=== PATIENT | female | born 1955 | race Caucasian/White ===

== ENCOUNTER 2019-09-20 10:29 | Inpatient (IN) | payer BC ==
[~2019-09-20] VITALS: Ht 165.1 cm; Wt 65.9 kg
[2019-09-20] MEDS ORDERED: normal saline 1000ml 1,000 ML IV ONE (10:35)
[2019-09-20 11:04] LABS: BASOPHILS # (AUTO) 0.1 X10'3 (0-0.2); BASOPHILS % (AUTO) 0.4 % (0-1); EOSINOPHILS # (AUTO) 0.1 X10'3 (0-0.9); EOSINOPHILS % (AUTO) 0.6 % (0-6); HEMATOCRIT 29.2 % (35.0-45.0); HEMOGLOBIN 9.3 g/dl (12.0-16.0); LYMPHOCYTES # (AUTO) 2.4 X10'3 (1.1-4.8); LYMPHOCYTES % (AUTO) 18.5 % (21-51); MEAN CORPUSCULAR HEMOGLOBIN 22.4 PG (27.0-31.0); MEAN CORPUSCULAR HGB CONC 31.8 g/dL (33.0-36.5); MEAN CORPUSCULAR VOLUME 70.3 FL (78-98); MEAN PLATELET VOLUME 6.9 FL (7.4-10.4); MONOCYTES % (AUTO) 7.7 % (2-12); NEUTROPHILS # (AUTO) 9.6 X10'3 (1.8-7.7); NEUTROPHILS % (AUTO) 72.8 % (42-75); PLATELET COUNT 721 X10'3 (140-440); RED BLOOD COUNT 4.15 X10'6 (4.20-5.60); RED CELL DISTRIBUTION WIDTH 18.9 % (11.5-14.5); WHITE BLOOD COUNT 13.1 X10'3 (4.5-11.0)
[2019-09-20 11:17] LABS: PARTIAL THROMBOPLASTIN TIME 28 SECONDS (22-32)
[2019-09-20 11:19] LABS: PLATELET ESTIMATE INCREASED
[2019-09-20 11:20] LABS: ALANINE AMINOTRANSFERASE 44 U/L (12-78); ALBUMIN 3.3 G/DL (3.4-5.0); ALBUMIN/GLOBULIN RATIO 0.6 (1.1-1.5); ALKALINE PHOSPHATASE 150 IU/L (46-116); ANION GAP 21 (8-16); ANISOCYTOSIS 2+; ASPARTATE AMINO TRANSFERASE 31 U/L (10-37); BILIRUBIN,TOTAL 0.3 MG/DL (0.1-1.0); BLOOD UREA NITROGEN 42 MG/DL (7-18); BUN/CREATININE RATIO 9.5 (6.6-38.0); CALCIUM 9.2 MG/DL (8.5-10.1); CHLORIDE 95 MMOL/L (99-107); CREATININE 4.43 MG/DL (0.40-0.90); GLUCOSE 112 MG/DL (70-104); MICROCYTOSIS 1+; SODIUM 135 MMOL/L (135-145); TOTAL CARBON DIOXIDE 19.4 MMOL/L (24-32); eGFR 10 ML/MIN
[2019-09-20] MEDS ORDERED: normal saline 1000ML IV soln IVB ONE ×3 (11:30→15:10)
[2019-09-20] MEDS ORDERED: levoFLOXACIN-Levaquin 750MG/D5 150 ML IV ONE (11:30)
[2019-09-20] MEDS ORDERED: metroNIDAZOLE-Flagyl 500mg/NS 100 ML IV ONE (11:30)
[2019-09-20 12:44] LABS: CLARITY,URINE CLOUDY (Clear); GLUCOSE, URINE NEGATIVE (Neg); KETONES,URINE TRACE mg/dl (Neg); LEUKOCYTE ESTERASE ,URINE NEGATIVE (Neg); NITRITES, URINE NEGATIVE (Neg); OCCULT BLOOD,URINE TRACE-INTACT (Neg); PROTEIN,URINE 100 mg/dl (Neg); UROBILINOGEN,URINE 0.2 E.U/dL (0.2-1.0)
[2019-09-20 12:51] LABS: COLOR,URINE DARK YELLOW (Yellow); UA COLLECTION TYPE STRAIGHT CATH
[2019-09-20 12:54] LABS: BACTERIA,URINE NONE SEEN /HPF (Neg); MUCUS STRANDS FEW /LPF (Neg); RBC,URINE 0-2 /HPF (0-2)
[2019-09-20 12:55] LABS: AMORPHOUS URATES 1+
[2019-09-20 12:56] LABS: FINE GRANULAR CAST 0-3 /LPF (NEGATIVE); SQUAMOUS EPITHELIAL CELL,UR FEW /LPF (FEW)
[2019-09-20] MEDS ORDERED: SERT100T10 PO (13:30)
[2019-09-20] MEDS ORDERED: HYDR-3972 PO (13:30)
[2019-09-20] MEDS ORDERED: OMEP40CA13 PO (13:30)
--- NOTE | 2019-09-20 13:37 | NUR ---
bp 80/54 placed in [place] and dr. [place] order another liter of ns
--- NOTE | 2019-09-20 13:48 | NUR ---
abd soft, no bs. ileostomy draining liquid brown stool, patent.
[2019-09-20] MEDS ORDERED: SIMV-42 PO (13:57)
[2019-09-20] MEDS ORDERED: normal saline 1000ml 1,000 ML IVB ONE (14:12)
[2019-09-20] MEDS ORDERED: bisacodyl 10mg suppository rectal RC PRN (14:30)
[2019-09-20] MEDS ORDERED: potassium Cl 20 mEq SR tablet PO PRN (14:30)
[2019-09-20] MEDS ORDERED: magnesium 4gm in 100ml NS 100 ML IV PRN (14:30)
[2019-09-20] MEDS ORDERED: ondansetron/PF 4mg/2ml inj IV PRN (14:30)
[2019-09-20] MEDS ORDERED: magnesium Cl slow-release 64mg tablet PO PRN (14:30)
[2019-09-20] MEDS ORDERED: magnesium hydroxide 30ml (MOM) UD suspension PO PRN (14:30)
[2019-09-20] MEDS ORDERED: metoclopramide 5 mg/ml inj IV PRN (14:30)
[2019-09-20] MEDS ORDERED: mag hydrox/Alum hydrox/simeth 30ml oral suspension PO PRN (14:30)
[2019-09-20] MEDS ORDERED: magnesium 2GM in 50ml NS 50 ML IV PRN (14:30)
[2019-09-20] MEDS ORDERED: acetaminophen 325mg tablet PO PRN ×2 (14:30)
[2019-09-20] MEDS ORDERED: potassium CL 10mEq/100ml bag 100 ML IV PRN ×2 (14:30)
[2019-09-20] MEDS ORDERED: fentaNYL/PF 50MCG/1 ML 2ML syringe IV ONE (14:40)
[2019-09-20] MEDS ORDERED: HYDROcodone/acetaminophen 10/325mg tab PO PRN (14:45)
--- NOTE | 2019-09-20 15:51 | NUR ---
UP TO BATHROOM VOIDED LARGE AMT OF URINE PER PT. DRAINED ILEOSTOMY 200CC BROWN LIQUID STOOL
--- NOTE | 2019-09-20 15:59 | NUR ---
US OF KIDNEYS COMPLETED.
[2019-09-20] MEDS ORDERED: metroNIDAZOLE-Flagyl 500mg/NS 100 ML IV SCH (16:00)
--- NOTE | 2019-09-20 16:45 | NUR ---
Received report from ER nurse Luz Maria DINERO. Awaiting arrival to room 346A.
[2019-09-20] MEDS: normal saline 1000ml 1,000 ML IV SCH ×2 (17:11→23:32)
[2019-09-20 17:22] VITALS: BP 87/57
--- NOTE | 2019-09-20 18:38 | NUR ---
Problems reprioritized. Patient report given, questions answered & plan of care reviewed with Dk DINERO.
--- NOTE | 2019-09-20 18:39 | NUR ---
Patient in room [facility] 346. I have received report from MICHELE DINERO and had the opportunity to ask questions and assume patient care.
[2019-09-20 20:00] VITALS: BP 90/50
[2019-09-20] MEDS: docusate sod 100mg capsule PO SCH (20:00)
[2019-09-20] MEDS: K and/or MAG REPLACEMENT MC SCH (20:00)
[2019-09-20] MEDS: heparin, porcine 5000 units/ml vial SQ SCH (20:00)
[2019-09-20] MEDS: HYDROcodone/acetaminophen 10/325mg tab PO PRN (20:06)
[2019-09-20] MEDS: temazepam 15mg capsule PO PRN (20:45)
[2019-09-21] VITALS (11 sets, daily range): BP systolic 82–101; BP diastolic 35–53
[2019-09-21] MEDS: HYDROcodone/acetaminophen 10/325mg tab PO PRN ×4 (00:19→20:02)
[2019-09-21] MEDS: metroNIDAZOLE-Flagyl 500mg/NS 100 ML IV SCH ×4 (00:21→23:51)
[2019-09-21] MEDS: normal saline 1000ml 1,000 ML IV SCH (04:38)
[2019-09-21 05:12] LABS: BASOPHILS % (AUTO) 0.6 % (0-1); EOSINOPHILS # (AUTO) 0.1 X10'3 (0-0.9); EOSINOPHILS % (AUTO) 1.6 % (0-6); LYMPHOCYTES # (AUTO) 1.8 X10'3 (1.1-4.8); LYMPHOCYTES % (AUTO) 28.5 % (21-51); MEAN CORPUSCULAR HEMOGLOBIN 22.4 PG (27.0-31.0); MEAN CORPUSCULAR HGB CONC 31.6 g/dL (33.0-36.5); MEAN CORPUSCULAR VOLUME 70.8 FL (78-98); MEAN PLATELET VOLUME 6.8 FL (7.4-10.4); MONOCYTES # (AUTO) 0.6 X10'3 (0-0.9); MONOCYTES % (AUTO) 9.2 % (2-12); NEUTROPHILS # (AUTO) 3.8 X10'3 (1.8-7.7); NEUTROPHILS % (AUTO) 60.1 % (42-75); PLATELET COUNT 504 X10'3 (140-440); RED BLOOD COUNT 3.01 X10'6 (4.20-5.60); WHITE BLOOD COUNT 6.3 X10'3 (4.5-11.0)
[2019-09-21 05:29] LABS: ALANINE AMINOTRANSFERASE 30 U/L (12-78); ALBUMIN 2.2 G/DL (3.4-5.0); ALBUMIN/GLOBULIN RATIO 0.6 (1.1-1.5); ALKALINE PHOSPHATASE 98 IU/L (46-116); ANION GAP 10 (8-16); ASPARTATE AMINO TRANSFERASE 22 U/L (10-37); BILIRUBIN,TOTAL 0.1 MG/DL (0.1-1.0); BLOOD UREA NITROGEN 20 MG/DL (7-18); BUN/CREATININE RATIO 20.4 (6.6-38.0); CALCIUM 8.1 MG/DL (8.5-10.1); CHLORIDE 109 MMOL/L (99-107); CREATININE 0.98 MG/DL (0.40-0.90); GLUCOSE 88 MG/DL (70-104); MAGNESIUM 1.5 MG/DL (1.5-2.4); PHOSPHORUS 3.2 MG/DL (2.3-4.5); POTASSIUM 3.4 MMOL/L (3.5-5.1); SODIUM 141 MMOL/L (135-145); TOTAL CARBON DIOXIDE 21.6 MMOL/L (24-32); TOTAL PROTEIN 6.2 G/DL (6.4-8.2); eGFR 57 ML/MIN
[2019-09-21 05:45] LABS: HEMATOCRIT 21.3 % (35.0-45.0); HEMOGLOBIN 6.7 g/dl (12.0-16.0)
--- NOTE | 2019-09-21 06:02 | NUR ---
CALLED DR. BAPTISTE AND WAS INFORMED OF CRITICAL HGB 6.7 AND HCT 21.3 WITH ORDER TO REPEAT CBC NOW.
--- NOTE | 2019-09-21 06:05 | NUR ---
Patient in room [facility] 346. I have received report from BAR Root and had the opportunity to ask questions and assume patient care.
[2019-09-21 06:37] LABS: BASOPHILS % (AUTO) 0.4 % (0-1); EOSINOPHILS # (AUTO) 0.1 X10'3 (0-0.9); EOSINOPHILS % (AUTO) 2.2 % (0-6); LYMPHOCYTES # (AUTO) 1.8 X10'3 (1.1-4.8); LYMPHOCYTES % (AUTO) 29.2 % (21-51); MEAN CORPUSCULAR HEMOGLOBIN 22.8 PG (27.0-31.0); MEAN CORPUSCULAR HGB CONC 31.9 g/dL (33.0-36.5); MEAN CORPUSCULAR VOLUME 71.3 FL (78-98); MEAN PLATELET VOLUME 6.6 FL (7.4-10.4); MONOCYTES # (AUTO) 0.6 X10'3 (0-0.9); MONOCYTES % (AUTO) 9.4 % (2-12); NEUTROPHILS # (AUTO) 3.6 X10'3 (1.8-7.7); NEUTROPHILS % (AUTO) 58.8 % (42-75); PLATELET COUNT 486 X10'3 (140-440); RED BLOOD COUNT 3.09 X10'6 (4.20-5.60); RED CELL DISTRIBUTION WIDTH 18.5 % (11.5-14.5); WHITE BLOOD COUNT 6.2 X10'3 (4.5-11.0)
--- NOTE | 2019-09-21 07:19 | NUR ---
Paged Dr. Galvin regarding critical H&H, low BP "PAGER ID: [phone] MESSAGE: RM 346A Deya Orlando. CRITICAL H&H 7.0/22.0 (repeat from 0500 6.7/21.3), current BP 85/35. Pt does not report dizziness or lightheadedness. Please advise, thanks. Estrella Surg [id number]."
[2019-09-21] MEDS: heparin, porcine 5000 units/ml vial SQ SCH ×2 (07:43→20:00)
[2019-09-21] MEDS: sertraline 50mg tablet PO SCH (07:43)
[2019-09-21] MEDS: potassium Cl 20 mEq SR tablet PO PRN ×3 (07:43→20:08)
[2019-09-21] MEDS: docusate sod 100mg capsule PO SCH ×2 (07:44→20:00)
[2019-09-21] MEDS: K and/or MAG REPLACEMENT MC SCH ×2 (07:44→20:10)
[2019-09-21] MEDS: levoFLOXACIN-Levaquin 250mg/D5 50 ML IV SCH (07:45)
--- NOTE | 2019-09-21 07:57 | NUR ---
Paged Dr. Galvin regarding critical H&H, low BP "PAGER ID: [phone] MESSAGE: RM 346A Deya Orlando. CRITICAL H&H 7.0/22.0 (repeat from 0500 6.7/21.3), current BP 85/35. Pt does not report dizziness or lightheadedness. Please advise, thanks. Estrella Surg [id number]."
[2019-09-21] MEDS ORDERED: enoxaparin 40mg/0.4ml syringe SQ SCH (08:00)
[2019-09-21 08:42] LABS: ANISOCYTOSIS 2+; HYPOCHROMASIA 1+; MICROCYTOSIS 1+; PLATELET ESTIMATE INCREASED; POLYCHROMASIA 1+
--- NOTE | 2019-09-21 09:46 | NUR ---
PAGER ID: [phone] MESSAGE: 346A. Marcio Orlando Please sign blood transfusion informed consent form. Thanks, Estrella Surg [id number].
--- NOTE | 2019-09-21 11:04 | NUR ---
Paged Dr. Galvin regarding informed consent & patient status. PAGER ID: [phone] MESSAGE: "RM 346A. Deya Orlando. Patient starting to feel dizzy and lightheaded, flushed. BP 101/52, HR 60. Please sign blood transfusion informed consent. Thanks, Estrella Surg [id number]"
--- NOTE | 2019-09-21 13:47 | NUR ---
1253 Blood transfusion started. Vital signs documented per protocol. Patient had some mild facial flushing prior to start of transfusion. 1305 patient reports feeling more flushed, very drowsy, wakes to shaking. Oriented to person, place, but not time or reason. PERRL. Afebrile, no change in blood pressure or heart rate. Patient reports chills. No chest or back pain, no headache, no itching, no SOB. Stopped blood transfusion at this time. Dr. Galvin made aware of possible transfusion reaction at 1310. Orders completed per protocol.
[2019-09-21 13:50] LABS: CLARITY,URINE SLIGHTLY CLOUDY (Clear); COLOR,URINE STRAW (Yellow); GLUCOSE, URINE NEGATIVE (Neg); KETONES,URINE NEGATIVE (Neg); LEUKOCYTE ESTERASE ,URINE NEGATIVE (Neg); NITRITES, URINE NEGATIVE (Neg); OCCULT BLOOD,URINE TRACE-LYSED (Neg); PH,URINE 5.5 (4.8-8.0); PROTEIN,URINE NEGATIVE (Neg); UROBILINOGEN,URINE 0.2 E.U/dL (0.2-1.0)
[2019-09-21 13:51] LABS: UA COLLECTION TYPE VOIDED
[2019-09-21 14:01] LABS: SQUAMOUS EPITHELIAL CELL,UR MODERATE /LPF (FEW)
[2019-09-21 14:02] LABS: BACTERIA,URINE FEW /HPF (Neg)
[2019-09-21 14:03] LABS: WBC,URINE 0-4 /HPF (0-4)
[2019-09-21 14:04] LABS: RBC,URINE 0-2 /HPF (0-2)
[2019-09-21 14:08] LABS: AMORPHOUS URATES 1+
[2019-09-21] MEDS: HYDROcodone/acetaminophen 5mg/325mg tablet PO PRN (16:12)
--- NOTE | 2019-09-21 16:12 | NUR ---
OSTOMY FACTS: Almost everyone has know of, or met, businessmen, entertainers, athletes, and people from all walks of life who have an ostomy. Ostomates (a person that has an ostomy) can ski, ride horses, bowl, and get healthy exercise in countless ways. Your usual activities of daily living can be resumed as soon as you are able. Gradually you will be able to wear the clothes worn before surgery. With modern pouches, nothing is noticeable under your clothing. It may be difficult at first to believe that an intimate relationship can be possible when one's body has been disfigured by surgery. This is not true. Love, fortunately, is not easily destroyed when it is based on genuine appreciation of a person as a thinking, feeling, reacting human being. AN OSTOMY IS NOT AN IMPAIRMENT!! DEFINITIONS: 1.OSTOMY: An opening that is created by a surgical procedure. The opening is called a "stoma". 2.STOMA: A surgical opening in the abdomen (belly) where intestine is brought through the abdominal wall and connected at the skin level. A stoma is shiny, wet and at first is dark purple but eventually turns pink, similar to the inside lining of your mouth. 3.COLON: A portion of the large bowel. 4.COLOSTOMY: A fecal diversion with an opening, (stoma) created anywhere along the colon. Making a connection between the colon and the abdominal wall. 5.ILLEOSTOMY: A fecal diversion with an opening, (stoma) created in the small intestine. Making a connection between the small intestine and the abdominal wall. 6.UROSTOMY: A urinary diversion with the ureters connected to a segment of the small bowel and one end is brought out and connected to the abdominal wall, creating a stoma. SHAPES and SIZES: "The stoma is usually round or oval. "It is anywhere from a dime to half dollar in size. "A stoma reaches its permanent size 6-8 weeks after surgery. PRODUCTS: 1.POUCH or APPLIANCE: An external device to contain stool or urine output and protect the skin around the stoma. It can be a one piece pouch or two pieces (a pouch and a wafer). 2.BARRIER: Substance that is used to protect the skin around the stoma from drainage and adhesive. 3.SKIN PREP or SEALANT: Product applied to the skin to reduce injury from moisture, drainage, or repeated pouch removal. Available in spray or wipes. 4.CLOSURE or CLAMP: A device used to close the bottom of a drainable pouch. 5.BRIDGE or CLARICE: A piece of plastic placed under a loop of bowel on the skins surface, to secure the bowel in place while the skin heals. POUCH CHANGE PROCEEDURE: 1.Assemble all the supplies "1 or 2 piece appliance "Ostomy paste (if needed) "Ostomy powder (if needed) "Skin prep wipes ( not recommended with coloplast products) "Moist wash cloth or cotton balls 2.Remove plastic center and paper backing from pouch. If pouch or wafer is not precut, use the sizing guide, or plastic backing from pouch to make a pattern. Do this by placing the paper over the stoma and trace it, or draw a pattern. Cut the wafer to fit and set it aside. 3.Remove old pouch by lifting up on tape while pressing skin down away from the tape. If there is a clip on your pouch, remove it and save it. 4.Clean skin or stoma with moistened wash cloth or cotton balls. Place a clean cotton ball over stoma hole to catch any drainage. Let skin dry. 5.For grooves or uneven areas in the skin- apply ostomy paste and sprinkle with ostomy powder, then gently shape the past so the area around the stoma is smooth and as flat as possible. Wipe off or blow away excess. Blot powder with skin prep wipe (DO NOT wipe powder). Let dry until no longer sticky. 6.For irritated or reddened skin- sprinkle ostomy powder on red or irritated area. Wipe off or blow away excess. Blot powder with skin prep wipe (DO NOT wipe powder). Let dry until no longer sticky. 7.Apply skin prep wipe to skin to which the pouch and tape will adhere. Let dry until no longer sticky. 8.If you have a one piece appliance- apply pouch so it is centered around the stoma. No skin should be exposed to stool. All skin should be covered by paste or pouch. 9.If you have a two piece appliance- Apply the wafer as described above, then snap or stick pouch onto wafer. Check to make sure wafer and pouch are securely connected. 10.Place clip on bottom of pouch. 11.Empty pouch when 1/3 full. OSTOMY SKIN CARE: "Good health care and nutrition are essential for healthy skin. "Usually a correct pouch size will prevent skin breakdown. "Use warm water and soap for skin cleansing. "Do not use creams or oil based products on skin around the stoma. This will prevent the appliance from sticking. "Use skin prep around the stoma. IT CAN TAKE 24 HOURS TO SEVERAL DAYS FOR SKIN TO HEAL. IF IT IS NOT RESOLVING, OR GETTING WORSE, CALL YOUR PRIMARY CARE DOCTOR. Addendum: 09/21/19 at 1612 by Anisha Mock RN Amended: Links added.
--- NOTE | 2019-09-21 16:14 | NUR ---
Stoma is s/p recent surgery. Stoma is brick red with bridge underneath. Bridge and stomal sutures are still intact. Cleansed with wound cleanser, rinsed with NS and dried. Applied crust of stoma powder and barrier spray, then zari ring, then bag. Advised pt to cover with warm blanket to help adherence. STOMA CARE: *USE SUCTION TO AID BAG CHANGES BUT DO NOT PLACE IN STOMA* Cleanse with wound cleanser, rinse with NS and lightly pat dry *do not wipe*. Apply thin layer of stoma powder to collin-stomal skin, then spray with barrier spray until transparent. Allow to dry, then apply 2nd layer of stoma powder and spray with barrier spray again until transparent. Apply zari seal to help even out area around stoma and bridge before placing bag over entire appliance. Apply warm compress (heated blanket) to area after application to aid in adherence. Addendum: 09/21/19 at 1615 by Anisha Mock RN Amended: Links added.
--- NOTE | 2019-09-21 18:40 | NUR ---
Problems reprioritized. Patient report given, questions answered & plan of care reviewed with Kristel, RN
[2019-09-21] MEDS: lactobacillus rhamnosus 10,000 MMU CELLS/CAPSULE PO SCH (20:00)
[2019-09-21] MEDS: temazepam 15mg capsule PO PRN (23:51)
[2019-09-22] MEDS: HYDROcodone/acetaminophen 10/325mg tab PO PRN ×2 (00:32→04:49)
[2019-09-22] MEDS: normal saline 1000ml 1,000 ML IV SCH ×2 (04:02→11:40)
[2019-09-22 05:22] LABS: BASOPHILS % (AUTO) 0.5 % (0-1); EOSINOPHILS # (AUTO) 0.2 X10'3 (0-0.9); EOSINOPHILS % (AUTO) 2.7 % (0-6); HEMATOCRIT 23.1 % (35.0-45.0); HEMOGLOBIN 7.4 g/dl (12.0-16.0); LYMPHOCYTES # (AUTO) 2.4 X10'3 (1.1-4.8); LYMPHOCYTES % (AUTO) 35.3 % (21-51); MEAN CORPUSCULAR HEMOGLOBIN 22.6 PG (27.0-31.0); MEAN CORPUSCULAR HGB CONC 32.1 g/dL (33.0-36.5); MEAN CORPUSCULAR VOLUME 70.5 FL (78-98); MEAN PLATELET VOLUME 6.6 FL (7.4-10.4); MONOCYTES # (AUTO) 0.5 X10'3 (0-0.9); MONOCYTES % (AUTO) 7.7 % (2-12); NEUTROPHILS # (AUTO) 3.6 X10'3 (1.8-7.7); NEUTROPHILS % (AUTO) 53.8 % (42-75); PLATELET COUNT 503 X10'3 (140-440); RED BLOOD COUNT 3.28 X10'6 (4.20-5.60); RED CELL DISTRIBUTION WIDTH 18.4 % (11.5-14.5); WHITE BLOOD COUNT 6.8 X10'3 (4.5-11.0)
[2019-09-22 05:49] LABS: ALANINE AMINOTRANSFERASE 36 U/L (12-78); ALBUMIN 2.5 G/DL (3.4-5.0); ALBUMIN/GLOBULIN RATIO 0.6 (1.1-1.5); ALKALINE PHOSPHATASE 105 IU/L (46-116); ANION GAP 12 (8-16); ASPARTATE AMINO TRANSFERASE 28 U/L (10-37); BILIRUBIN,TOTAL 0.1 MG/DL (0.1-1.0); BLOOD UREA NITROGEN 17 MG/DL (7-18); BUN/CREATININE RATIO 22.1 (6.6-38.0); CALCIUM 9.1 MG/DL (8.5-10.1); CHLORIDE 106 MMOL/L (99-107); CREATININE 0.77 MG/DL (0.40-0.90); GLUCOSE 90 MG/DL (70-104); MAGNESIUM 1.6 MG/DL (1.5-2.4); PHOSPHORUS 3.2 MG/DL (2.3-4.5); POTASSIUM 3.9 MMOL/L (3.5-5.1); SODIUM 141 MMOL/L (135-145); TOTAL CARBON DIOXIDE 22.9 MMOL/L (24-32); eGFR 75 ML/MIN
[2019-09-22 07:26] VITALS: BP 101/49
[2019-09-22] MEDS: docusate sod 100mg capsule PO SCH (08:00)
[2019-09-22] MEDS: K and/or MAG REPLACEMENT MC SCH (08:00)
[2019-09-22] MEDS: levoFLOXACIN-Levaquin 250mg/D5 50 ML IV SCH (08:30)
[2019-09-22] MEDS: lactobacillus rhamnosus 10,000 MMU CELLS/CAPSULE PO SCH (08:32)
[2019-09-22] MEDS: heparin, porcine 5000 units/ml vial SQ SCH (08:33)
[2019-09-22] MEDS: sertraline 50mg tablet PO SCH (08:33)
[2019-09-22] MEDS: HYDROcodone/acetaminophen 5mg/325mg tablet PO PRN (08:35)
[2019-09-22 11:00] VITALS: BP 89/48
[2019-09-22] MEDS: metroNIDAZOLE-Flagyl 500mg/NS 100 ML IV SCH ×2 (11:41→16:00)
[2019-09-22 11:54] VITALS: BP 90/48
[2019-09-22] MEDS ORDERED: LEVO500T2 PO (14:46)
[2019-09-22] MEDS ORDERED: METR-159 PO (14:46)
--- NOTE | 2019-09-22 14:52 | NUR ---
MD Santiago made aware of lower blood pressures of this AM. No new orders at this time.
--- NOTE | 2019-09-22 14:52 | NUR ---
REVIEWED DISCHARGE PAPERWORK WITH PT. AND SPOUSE. PT. AWARE TO FOLLOW UP WITH PCP AND KATEY. WOUND CARE INSTRUCTIONS GIVEN TO PT. SHE IS CONFIDENT SHE CAN CARE FOR HER WOUND. IV DC'D, PRESSURE BANDAGE APPLIED, NO S/SX BLEEDING NOTED. TELE DC'D CLEANED AND RETURNED. PT. AWARE TO TRESTLE MECHANIC HER 2 ANTIBIOTIC PRESCRIPTIONS THAT THE COMPUTER STATES HAVE BEEN E-SCRIPTED TO HER PREFERRED PHARMACY. PT. ESCORTED IN A WC OUT TO HER PRIVATE VEHICLE. SHE TOOK ALL OF HER BELONGINGS.
== END 2019-09-22 16:26 | disposition home or self-care (01) | DRG 641 ==
LOC: ER 10:30 → ED HOLD 14:30 → SUR 3N 17:01
PROVIDERS: ADMIT Family Medicine; ATTEND Family Medicine
PROC: 30233N1 Transfusion of Nonautologous Red Blood Cells into Peripheral Vein, Percutaneous Approach (ICD-10-PCS; principal; 2019-09-21)
DX: E86.0 Dehydration (principal); N17.9 Acute kidney failure, unspecified; D64.9 Anemia, unspecified; E78.5 Hyperlipidemia, unspecified; F32.9 Major depressive disorder, single episode, unspecified; I10 Essential (primary) hypertension; K21.9 Gastro-esophageal reflux disease without esophagitis; M06.9 Rheumatoid arthritis, unspecified; Z80.1 Family history of malignant neoplasm of trachea, bronchus and lung; Z87.19 Personal history of other diseases of the digestive system; Z93.2 Ileostomy status; Z93.3 Colostomy status; Z88.0 Allergy status to penicillin; Z88.8 Allergy status to other drugs, medicaments and biological substances
CPT/HCPCS: 36415; 71045; 74176; 76775; 80053; 81001; 83605; 83735; 84100; 84145; 85025; 85610; 85730; 86078; 86885; 86900; 86901; 86920; 87040; 87081; 87088; 93005; 96365; 97161; 97530; 99285; G0378; J1644; J1956; J3010; J3490; J7030; P9016

== ENCOUNTER 2023-07-01 19:54 | Emergency (ER) | payer BC, MEDICARE ==
[~2023-07-01] VITALS: Ht 152.4 cm; Wt 75.5 kg
[~2023-07-01 19:54] MED LIST: HYDR-3972 PO; OMEP40CA21 PO; SERT-434 PO; SIMV-42 PO
--- NOTE | 2023-07-01 20:07 | NUR ---
ATTEMPTED TO PLACE C-COLLAR ON PT, PT REFUSES AND REMOVED BY SELF.
[2023-07-01] MEDS ORDERED: ondansetron 4mg rapidly disintigrating tab PO ONE (20:15)
[2023-07-01] MEDS ORDERED: morphine 4 MG/ML inj SYRINge IV ONE (20:15)
--- NOTE | 2023-07-01 20:29 | NUR ---
DAUGHTER ELISEO [place]GE- [phone]
--- NOTE | 2023-07-01 20:30 | NUR ---
PT BACK FROM CT
--- NOTE | 2023-07-01 21:34 | NUR ---
CALLED DAUGHTER ELISEO FOR D/C RIDE HOME. ETA 30MIN.
[2023-07-01 22:15] VITALS: BP 100/74; PULSE 75; RESP 18; TEMP 98.2; O2SAT 98
== END 2023-07-01 22:17 | disposition home or self-care (01) ==
LOC: ER 19:54
DX: S09.90XA Unspecified injury of head, initial encounter (principal); I10 Essential (primary) hypertension; K21.9 Gastro-esophageal reflux disease without esophagitis; M19.90 Unspecified osteoarthritis, unspecified site; F10.129 Alcohol abuse with intoxication, unspecified; Z88.8 Allergy status to other drugs, medicaments and biological substances; Z88.0 Allergy status to penicillin; Z79.899 Other long term (current) drug therapy; W19.XXXA Unspecified fall, initial encounter; Y93.89 Activity, other specified; Y92.89 Other specified places as the place of occurrence of the external cause; Y99.8 Other external cause status; Y90.9 Presence of alcohol in blood, level not specified
CPT/HCPCS: 70450; 96374; 99285; J2270

== ENCOUNTER 2023-07-30 23:41 | Emergency (ER) | payer MEDICARE ==
[~2023-07-30] VITALS: Ht 152.4 cm; Wt 78.6 kg
[2023-07-30 23:45] VITALS: BP 109/59; PULSE 62; RESP 20; TEMP 97.3; O2SAT 94
[2023-07-31] MEDS ORDERED: ondansetron/PF 4mg/2ml inj IV ONE (00:25)
[2023-07-31] MEDS ORDERED: morphine 4 MG/ML inj SYRINge IV ONE (00:25)
[2023-07-31] MEDS ORDERED: acetaminophen 325mg tablet PO ONE (00:25)
[2023-07-31 00:26] LABS: BILIRUBIN,URINE LARGE (Neg); CLARITY,URINE TURBID (Clear); COLOR,URINE RED (Yellow); GLUCOSE, URINE 100 mg/dl (Neg); KETONES,URINE 15 mg/dl (Neg); LEUKOCYTE ESTERASE ,URINE LARGE (Neg); NITRITES, URINE POSITIVE (Neg); OCCULT BLOOD,URINE LARGE (Neg); PH,URINE 6.5 (4.8-8.0); PROTEIN,URINE >=300 mg/dl (Neg); UROBILINOGEN,URINE >=8.0 E.U/dL (0.2-1.0)
[2023-07-31 00:59] LABS: UA COLLECTION TYPE CLN CATCH MIDSTREAM
[2023-07-31 01:00] LABS: RBC,URINE TNTC /HPF (0-2)
[2023-07-31 01:04] LABS: SQUAMOUS EPITHELIAL CELL,UR FEW /LPF (FEW)
[2023-07-31 01:07] LABS: WBC,URINE TNTC /HPF (0-4)
[2023-07-31 01:11] LABS: BACTERIA,URINE 2+ /HPF (Neg)
[2023-07-31 01:28] LABS: BASOPHILS # (AUTO) 0.1 X10'3 (0-0.2); BASOPHILS % (AUTO) 0.6 % (0-1); EOSINOPHILS # (AUTO) 0.1 X10'3 (0-0.9); EOSINOPHILS % (AUTO) 0.6 % (0-6); HEMOGLOBIN 15.7 g/dl (12.0-16.0); LYMPHOCYTES # (AUTO) 1.9 X10'3 (1.1-4.8); LYMPHOCYTES % (AUTO) 14.2 % (21-51); MEAN CORPUSCULAR HEMOGLOBIN 32.8 PG (27.0-31.0); MEAN CORPUSCULAR HGB CONC 34.8 g/dL (33.0-36.5); MEAN CORPUSCULAR VOLUME 94.2 FL (78-98); MEAN PLATELET VOLUME 7.5 FL (7.4-10.4); MONOCYTES # (AUTO) 0.8 X10'3 (0-0.9); MONOCYTES % (AUTO) 5.9 % (2-12); NEUTROPHILS # (AUTO) 10.8 X10'3 (1.8-7.7); NEUTROPHILS % (AUTO) 78.7 % (42-75); PLATELET COUNT 265 X10'3 (140-440); RED BLOOD COUNT 4.78 X10'6 (4.20-5.60); WHITE BLOOD COUNT 13.7 X10'3 (4.5-11.0)
[2023-07-31 01:42] LABS: ALANINE AMINOTRANSFERASE 20 U/L (12-78); ALBUMIN 3.9 G/DL (3.4-5.0); ALBUMIN/GLOBULIN RATIO 1.2 (1.1-1.5); ALKALINE PHOSPHATASE 53 IU/L (46-116); ANION GAP 10 (8-16); ASPARTATE AMINO TRANSFERASE 18 U/L (10-37); BILIRUBIN,TOTAL 0.4 MG/DL (0.1-1.0); BLOOD UREA NITROGEN 14 MG/DL (7-18); BUN/CREATININE RATIO 14.7 (10.0-20.0); CHLORIDE 100 MMOL/L (99-107); CREATININE 0.95 MG/DL (0.40-0.90); GLUCOSE 108 MG/DL (70-104); LIPASE 93 U/L (16-77); SODIUM 139 MMOL/L (135-145); TOTAL CARBON DIOXIDE 29.4 MMOL/L (24-32); TOTAL PROTEIN 7.2 G/DL (6.4-8.2); eCRCL 41 ML/MIN; eGFR 58 ML/MIN
[2023-07-31 01:49] LABS: POTASSIUM 2.9 MMOL/L (3.5-5.1)
[2023-07-31] MEDS ORDERED: CefTRIAXone/D5W-Rocephin 1gm 50 ML IV ONE (01:50)
[2023-07-31] MEDS ORDERED: potassium Cl 20 mEq SR tablet PO STA (01:50)
[2023-07-31] MEDS ORDERED: CEPH-585 PO (03:32)
[2023-07-31] MEDS ORDERED: cephalexin 250mg capsule PO ONE (03:40)
== END 2023-07-31 04:15 | disposition home or self-care (01) ==
LOC: ER 23:42
DX: N39.0 Urinary tract infection, site not specified (principal); E87.6 Hypokalemia; I10 Essential (primary) hypertension; K21.9 Gastro-esophageal reflux disease without esophagitis; Z88.8 Allergy status to other drugs, medicaments and biological substances; Z79.899 Other long term (current) drug therapy; Z88.0 Allergy status to penicillin
CPT/HCPCS: 36415; 74176; 80053; 81001; 83605; 83690; 85025; 87040; 87077; 87088; 87186; 99284

== ENCOUNTER 2025-07-29 08:39 | Outpatient (CLI) | payer MEDICARE ==
[2025-07-29 09:32] LABS: MEAN PLATELET VOLUME 7.1 FL (7.4-10.4); RED CELL DISTRIBUTION WIDTH 14.4 % (11.5-14.5)
[2025-07-29 10:40] LABS: CHOL/HDL RATIO 4.0 (0.00-4.99); CREATININE 0.73 MG/DL (0.40-0.90); LDL CHOLESTEROL 149 MG/DL (50-100); TOTAL CARBON DIOXIDE 30.4 MMOL/L (24-32); eGFR 79 ML/MIN
--- NOTE | 2025-07-29 10:53 | RADIOLOGY REPORT ---
EXAM: CT CT CHEST LOW DOSE HISTORY: NICOTINE DEPENDENCE, CIGARETTES COMPARISON: None TECHNIQUE: Noncontrast helical CT images of the chest were performed utilizing low dose lung cancer screening protocol. Sagittal and coronal reformatted images were obtained. This CT exam was performed using one or more of the following dose reduction techniques: Automated exposure control, adjustment of the mA and/or kV according to patient size, or use of iterative reconstruction technique. Radiation Dose: CT Dose: CTDI volume is 2.8 mGy. Dose-length product is 94.43 mGy*cm FINDINGS: No noncalcified pulmonary nodules, consolidative infiltrates, pneumothorax, pleural effusions, or pulmonary edema. There is linear and nodular scarring in the lung bases. No suspicious mediastinal or axillary adenopathy. The heart is not enlarged. There are coronary artery calcifications. There is a trace pericardial effusion. The central pulmonary arteries are ectatic. No thoracic aortic aneurysm. There is a chronic appearing mild superior endplate compression fracture of T11. There is thoracic degenerative disc disease with multiple thick bridging syndesmophytes present. IMPRESSION: 1. No noncalcified pulmonary nodules or other acute intrathoracic process. 2. Coronary artery disease. 3. Chronic appearing mild superior endplate compression fracture of T11. 4. Thoracic spondylosis with some degree of ankylosis. Lung-RADS 1. Negative. Continue annual screening with LDCT in 12 months. Lung- RADS v2022.
[2025-07-30 11:04] LABS: VITAMIN D, 25-HYDROXY 19.6 ng/mL (30.0-100.0)
[2025-07-30 15:42] LABS: CREATININE, URINE 109.9 mg/dL (Not Estab.); MICROALB/CRT, RATIO 76 mg/g creat (0-29); MICROALBUMIN,U,RANDOM 83.4 ug/mL (Not Estab.)
== END 2025-07-29 23:59 | disposition home or self-care (01) ==
LOC: RAD 08:39
PROVIDERS: ATTEND Internal Medicine
DX: S22.080A Wedge compression fracture of T11-T12 vertebra, initial encounter for closed fracture (principal); Z12.2 Encounter for screening for malignant neoplasm of respiratory organs; F17.210 Nicotine dependence, cigarettes, uncomplicated; I10 Essential (primary) hypertension; E78.2 Mixed hyperlipidemia; E53.8 Deficiency of other specified B group vitamins; M51.34 Other intervertebral disc degeneration, thoracic region; M43.24 Fusion of spine, thoracic region; Z79.899 Other long term (current) drug therapy; E55.9 Vitamin D deficiency, unspecified; I25.10 Atherosclerotic heart disease of native coronary artery without angina pectoris; X58.XXXA Exposure to other specified factors, initial encounter; Y93.89 Activity, other specified; Y92.89 Other specified places as the place of occurrence of the external cause; Y99.8 Other external cause status
CPT/HCPCS: 36415; 71271; 80053; 80061; 82043; 82306; 82570; 82607; 82746; 83036; 83735; 84443; 84550; 85025